=== PATIENT | male | born 1955 | race Caucasian/White ===

== ENCOUNTER 2017-07-24 21:44 | Emergency (ER) | payer OTHER ==
--- NOTE | 2017-07-24 22:00 | EDPHY ---
H & P HPI/ROS: CHIEF COMPLAINT: Foreign body right ear History by patient HISTORY OF PRESENT ILLNESS: 61-year-old man presents complaining of ear but being stuck in his right ear. 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 He says he already has some hearing loss in that ear but it is now worse. He denies any other pain or injury. REVIEW OF SYSTEMS: As in HPI, and all other systems reviewed and are negative Physical Exam: General Appearance: Alert and no distress. Head: normocephalic, atraumatic, no sinus tenderness Eyes: Pupils equal and round no injection. Ears: TM clear on left, right ear with black foreign body in canal Extremities have full range of motion and are nontender. Skin: No rashes or lesions. Allergies/Adverse Reactions: No Known Allergies Allergy (Unverified 07/24/17 22:01) Home Medications: Medication Instructions Recorded Atorvastatin Calcium 07/24/17 MDM/Departure - MDM Procedures: Procedure: Foreign body removal from right ear. Anesthesia: None required After verbal consent was obtained, the rubber ear bud was removed from right ear canal. The foreign body was removed manually with forceps under direct visualization. There were no complications. The procedure was performed by myself. ED Course/Re-evaluation: 61-year-old man presents with foreign body in right ear. This was removed without complication. - Depart Disposition: Home, Routine, Self-Care Clinical Impression: Foreign body in right ear, initial encounter Condition: Good Instructions: Ear Foreign Body (ED) Additional Instructions: You were seen by Dr. Eda Best today. Avoid putting any objects including things like Q-Tips for cleaning in your ear. Return for any worsening or new concerns. Referrals: NORBERTO VIDAL [Primary Care Provider] - As per Instructions
[2017-07-24 22:01] VITALS: BP 163/94; PULSE 87; RESP 16; TEMP 97.7; O2SAT 95
== END 2017-07-24 22:10 | disposition home or self-care (01) ==
LOC: CED 21:44
PROC: 09C37ZZ Extirpation of Matter from Right External Auditory Canal, Via Natural or Artificial Opening (ICD-10-PCS; principal; 2017-07-24)
DX: T16.1XXA Foreign body in right ear, initial encounter (principal); X58.XXXA Exposure to other specified factors, initial encounter